=== PATIENT | male | born 1980 | race Two or more races ===

== ENCOUNTER 2023-06-26 18:15 | Emergency (ER) | payer SELFPAY ==
[2023-06-26] MEDS ORDERED: Sodium Chloride 0.9% 10 ML Syringe FLUSH PRN (19:19)
[2023-06-26] MEDS ORDERED: Sodium Chloride 0.9% 1,000 ML IV ONE ×2 (19:20→19:39)
[2023-06-26 19:29] LABS: BASOPHILS PERCENT AUTO 0.3 % (0.1-1.3); EOSINOPHILS ABSOLUTE AUTO 0.32 K/uL (0.00-0.40); EOSINOPHILS PERCENT AUTO 4.4 % (0.0-5.4); HEMATOCRIT 45.3 % (38.4-49.7); IMMATURE GRAN PERCENT AUTO 0.3 % (0.0-0.7); LYMPHOCYTES ABSOLUTE AUTO 3.47 K/uL (0.8-3.3); LYMPHOCYTES PERCENT AUTO 47.3 % (11.4-47.7); MEAN CORPUSCULAR HEMOGLOBIN 29.3 pg (31.6-35.5); MEAN CORPUSCULAR HGB CONC 37.5 g/dL (31.6-35.5); MEAN CORPUSCULAR VOLUME 78.1 fL (81.4-99.0); MONOCYTES ABSOLUTE AUTO 0.34 K/uL (0.20-0.90); MONOCYTES PERCENT AUTO 4.6 % (3.3-12.6); NEUTROPHILS ABSOLUTE AUTO 3.17 K/uL (1.0-7.6); NEUTROPHILS PERCENT AUTO 43.1 % (40.0-78.1); PLATELET COUNT,PLT 207 K/uL (130-375); WHITE BLOOD CELL COUNT,WBC 7.3 K/uL (3.2-11.0)
[2023-06-26 19:35] LABS: BASOPHILS ABSOLUTE AUTO 0.02 K/uL (0.00-0.10); IMMATURE GRAN ABSOLUTE AUTO 0.02 K/uL (0.00-0.23)
[2023-06-26 19:38] LABS: BASE EXCESS VENOUS 0.3 mm/L; BICARBONATE,VENOUS 23.2 mmol/L; CARBOXYHEMOGLOBIN 2.5 % (0.0-1.6); METHEMOGLOBIN 0.7 %; O2 SATURATION VENOUS 92.5; OXYHEMOGLOBIN 89.5 %; PCO2 VENOUS 34.5 mm/Hg; PH,VENOUS 7.443 (7.350-7.450); PO2 VENOUS 59.9 mm/Hg; TOTAL HEMOGLOBIN 17.5 g/dL (13.5-18.0)
[2023-06-26 19:49] LABS: CALCIUM 9.1 mg/dL (8.5-10.1); CREATININE 0.9 mg/dL (0.8-1.3); EST CRCL DRUG DOSING (CG) 90.16 mL/min; POTASSIUM,K 3.8 mmol/L (3.6-5.2)
[2023-06-26 19:50] LABS: ANION GAP 16.8 mmol/L (5.0-14.0)
[2023-06-26] MEDS ORDERED: Lisinopril 10 MG Tab PO SCH (20:15)
[2023-06-26 20:32] LABS: CORONAVIRUS COVID-19 NAA NEGATIVE (NEGATIVE); INFLUENZA A NAA NEGATIVE (NEGATIVE); INFLUENZA B NAA NEGATIVE (NEGATIVE); RESPIRATORY SYNCYTIAL VIR NAA NEGATIVE (NEGATIVE)
[2023-06-26 21:13] LABS: APPEARANCE,URINE CLEAR (CLEAR); BILIRUBIN,URINE NEGATIVE (NEGATIVE); COLOR,URINE YELLOW (YELLOW); GLUCOSE,URINE 500 mg/dL (NEGATIVE); KETONES,URINE NEGATIVE (NEGATIVE); LEUKOCYTE ESTERASE,URINE NEGATIVE (NEGATIVE); NITRITE,URINE NEGATIVE (NEGATIVE); OCCULT BLOOD,URINE SMALL (NEGATIVE); PROTEIN,URINE >=300 mg/dL (NEGATIVE); UROBILINOGEN,URINE 0.2 EU/dL (0.2-1.0)
[2023-06-26 21:19] LABS: AMORPHOUS SEDIMENT,URINE NOT SEEN; BACTERIA,URINE FEW; EPITHELIAL CELLS,URINE RARE; MUCUS,URINE RARE; WBC,URINE 0-5 (0-5)
== END 2023-06-26 22:44 | disposition home or self-care (01) ==
LOC: JP.ED 18:15
DX: I10 Essential (primary) hypertension (principal); E11.65 Type 2 diabetes mellitus with hyperglycemia; Z20.822 Contact with and (suspected) exposure to COVID-19
CPT/HCPCS: 0241U; 36415; 80048; 81001; 82009; 82803; 82947; 83735; 85025; 96360; 99284; A9270; J3490; J7030